=== PATIENT | female | born 1985 | race Caucasian/White ===

== ENCOUNTER 2018-12-16 18:21 | Emergency (ER) | payer OTHER, SELFPAY ==
--- NOTE | 2018-12-16 20:38 | RAD ---
TWO VIEW CHEST: 12/16/18 HISTORY: Cough. The lung cool are clear. No infiltrate. Heart and mediastinum unremarkable. IMPRESSION: No acute abnormality. POS: [facility]
== END 2018-12-16 20:40 | disposition home or self-care (01) ==
LOC: ERS 18:21
DX: J06.9 Acute upper respiratory infection, unspecified (principal); F17.210 Nicotine dependence, cigarettes, uncomplicated
CPT/HCPCS: 71046; 87804